=== PATIENT | female | born 1950 | race Caucasian/White ===

== ENCOUNTER 2020-01-21 17:37 | Emergency (ER) | payer OTHER, SELFPAY ==
[2020-01-21 17:37] VITALS: BP 160/98; PULSE 88; RESP 19; TEMP 37.1; O2SAT 98; BMI 31.8
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
[2020-01-21 17:54] VITALS: BP 130/90; PULSE 86; O2SAT 98
--- NOTE | 2020-01-21 18:10 | PC.NURSE ---
Pt to radiology
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
--- NOTE | 2020-01-21 18:43 | PC.NURSE ---
Pt returned from rad.
[2020-01-21 18:47] VITALS: BP 131/79; PULSE 77; O2SAT 99
[2020-01-21 19:37] VITALS: BP 159/83; PULSE 88; RESP 16; TEMP 36.8
== END 2020-01-21 19:39 | disposition home or self-care (01) ==
PROVIDERS: Emergency Provider Emergency Medicine; PCP Family Medicine
DX: S62.367A Nondisplaced fracture of neck of fifth metacarpal bone, left hand, initial encounter for closed fracture (principal); S16.1XXA Strain of muscle, fascia and tendon at neck level, initial encounter; V43.52XA Car driver injured in collision with other type car in traffic accident, initial encounter; Y92.414 Local residential or business street as the place of occurrence of the external cause
CPT/HCPCS: 29125; 71045; 72125; 72170; 73130; 99282

== ENCOUNTER → 2020-02-08 09:07 | Outpatient (CLI) | payer OTHER, SELFPAY ==
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
== END ==
PROVIDERS: PCP Family Medicine; Visit Provider Orthopaedic Surgery
DX: S62.307A Unspecified fracture of fifth metacarpal bone, left hand, initial encounter for closed fracture (principal)
CPT/HCPCS: 73130

== ENCOUNTER → 2020-02-29 08:56 | Outpatient (CLI) | payer OTHER, SELFPAY ==
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
== END ==
PROVIDERS: PCP Family Medicine; Visit Provider Orthopaedic Surgery
DX: S62.307A Unspecified fracture of fifth metacarpal bone, left hand, initial encounter for closed fracture (principal)
CPT/HCPCS: 73130

== ENCOUNTER 2020-03-24 17:29 | Emergency (ER) | payer MEDICARE, SELFPAY ==
[2020-03-24 17:45] VITALS: BP 187/88; PULSE 86; RESP 20; TEMP 37.5; O2SAT 96; BMI 32.8
--- NOTE | 2020-03-24 18:06 | HMH.EDUTC ---
[facility] [place] Disposition Clinical Impression: Exposure to COVID-19 virus, Viral syndrome, Bronchitis Disposition: Home, Self-Care Condition on Discharge: Good Instructions: DI for COVID-19 (Suspected or Confirmed ), Preventing the Spread of Coronavirus Discharge Instructions Additional Instructions: Drink plenty of fluids. Take tylenol for pain or fever. Return if you begin to have difficulty breathing. Follow up with your regular doctor. GO TO THE ER FOR ANY WORSENING SYMPTOMS Prescriptions: Benzonatate [Tessalon Perle 100mg Cap] 100 mg PO TIDP PRN #30 cap PRN Reason: Cough Transmission Status: Received by [id number] Azithromycin [Z-Demetrius 250mg Tab*] 250 mg PO UD DOSE PK #6 tab Transmission Status: Received by [id number] Referrals: Provider,Referral, [Primary Care Provider] - Time of Disposition: 18:08 Medical Decision Making - Medical Records Medical records reviewed: No: I reviewed the patient's medical records. - Romel Inquiry Pt receiving controlled substance: No Vital Signs: 03/24/20 17:45 03/24/20 18:20 Temperature 99.5 F 99.5 F Temperature Source Oral Pulse Rate 86 Pulse Rate [Right Brachial] 86 Respiratory Rate 20 20 Blood Pressure 187/88 H Blood Pressure [Right Arm] 187/88 H Blood Pressure Mean [Right Arm] 121 Blood Pressure Source [Right Arm] Automatic Cuff Blood Pressure Position [Right Arm] Sitting 02 Sat by Pulse Oximetry 96 Oxygen Delivery Method Room Air Orders (Tests/Meds): ORDERS Category Date Time Status Covid-19 Nasal PCR ([facility]) Routine Lab 03/24/20 17:50 Received [facility] [place] HPI - General Stated complaint: covid exposure Time Seen by Provider: 03/24/20 18:06 Mode of Arrival: Ambulatory Source of Information: Patient Limitations: No Limitations Description of Symptoms (Recalled from Triage Doc. by RN): REQUESTING COVID TEST D/T EXPOSURE; C/O COUGH, HEADACHE, AND SORE THROAT HEENT Symptoms (Recalled from RN notes): No Resp Symptoms (Recalled from RN notes): No Skin Symptoms (Recalled from RN notes): No MS Symptoms (Recalled from RN notes): No Functional Status (Recalled from RN notes): WNL - History of Present Illness Provider Complaint: She states that since last night she has been having chillng, body aches and head ache. She has also started coughing a lot today. Her sister was hospitalized for covid today. - Related Data Home Medications Medication Instructions Recorded Confirmed atorvastatin 20 mg tablet 20 mg PO DAILY #90 tab 02/18/19 02/29/20 fluoxetine 20 mg capsule 20 mg PO DAILY #90 cap 02/18/19 02/29/20 glimepiride 2 mg tablet 2 mg PO DAILY #90 tab 02/18/19 02/29/20 levothyroxine 150 mcg tablet 150 mcg PO DAILY #90 tab 02/18/19 02/29/20 metformin 500 mg tablet,extended 500 mg PO BID #180 tab 02/18/19 02/29/20 release 24 hr omeprazole 20 mg capsule,delayed 20 mg PO DAILY #90 cap 02/18/19 02/29/20 release ropinirole 2 mg tablet 2 mg PO DAILY #90 tab 02/18/19 02/29/20 Amlodipine Besylate [Amlodipine 5 mg PO DAILY 01/21/20 02/29/20 10mg Tab] Previous Rx's Medication Instructions Recorded Hydrocod/Acet 5/325 mg [[place] 1 tab PO Q6HP PRN #10 tab 01/21/20 5/325mg tablet] Azithromycin [Z-Demetrius 250mg Tab*] 250 mg PO UD DOSE PK #6 tab 03/24/20 Benzonatate [Tessalon Perle 100mg 100 mg PO TIDP PRN #30 cap 03/24/20 Cap] Allergies Allergy/AdvReac Type Severity Reaction Status Date / Time No Known Allergies Allergy Verified 02/29/20 09:37 - Worker's Comp Is this a Worker's Comp case?: No [facility] History - Hepatitis A Screen Drug use history?: No High risk sexual behaviors?: No History of sexually transmitted infection?: No Currently employed?: No Childcare worker?: No Do you have indoor plumbing?: Yes Do you have electricity?: Yes Attestation statement:: This patient has been screened for Hepatitis A risk factors. I have reviewed the patient's past medical history: Yes Medical
[2020-03-24 18:20] VITALS: BP 187/88; PULSE 86; RESP 20; TEMP 37.5; O2SAT 96
--- NOTE | 2020-03-25 00:27 | PC.NURSE ---
Positive Covid called from Lab, Dr Nichole notified and results placed in [facility] for follow up
--- NOTE | 2020-03-25 10:22 | PC.NURSE ---
PATIENT NOTIFIED OF POSITIVE COVID TEST AT THIS TIME
== END 2020-03-24 18:22 | disposition home or self-care (01) ==
PROVIDERS: Emergency Provider Nurse Practitioner Family
DX: U07.1 COVID-19 (principal); E11.9 Type 2 diabetes mellitus without complications; K21.9 Gastro-esophageal reflux disease without esophagitis; I10 Essential (primary) hypertension; E03.9 Hypothyroidism, unspecified; E78.5 Hyperlipidemia, unspecified; Z79.899 Other long term (current) drug therapy
CPT/HCPCS: G0463; 99202; U0003

== ENCOUNTER 2020-03-30 08:53 | Emergency (ER) | payer MEDICARE, SELFPAY ==
[2020-03-30 08:54] VITALS: BP 133/78; PULSE 91; RESP 20; TEMP 36.9; O2SAT 96
--- NOTE | 2020-03-30 09:07 | HMH.EDGENADL ---
ED Disposition Clinical Impression: Low blood pressure reading, COVID-19 virus infection Disposition: Home, Self-Care Condition on Discharge: Good Additional Instructions: Do not take your blood pressure medicine this morning. You may resume this evening. Rest and drink plenty of fluids today. Follow-up with your primary care doctor if problems persist. Return to the emergency department if blood pressure less than 90, severe shortness of breath, severe weakness or faintness, or if vomiting and unable to hold down fluids. Referrals: Camilo Olson MD [Primary Care Provider] - - Critical Care Critical Care Time: No Attestation: On , the high probability of a clinically significant, sudden or life threatening deterioration of the following system(s) required my full and direct attention, intervention and personal management. The time I documented below is in addition to time spent performing reported procedures but includes the following listed in this critical care notation. Medical Decision Making - Romel Inquiry Pt receiving controlled substance: No Vital Signs: 03/30/20 08:54 03/30/20 09:25 03/30/20 10:10 Temperature 98.4 F Temperature Source Oral Pulse Rate [Orthostatic Lying] 84 Pulse Rate [Orthostatic Standing] 102 H Pulse Rate [Radial] 91 H 74 Respiratory Rate 20 75 H Blood Pressure [Orthostatic Lying] 105/65 L Blood Pressure [Orthostatic Standing] 99/56 L Blood Pressure [Right Arm] 133/78 120/74 Blood Pressure Mean [Right Arm] 96 89 Blood Pressure Position [Right Arm] Sitting 02 Sat by Pulse Oximetry 96 95 Oxygen Delivery Method Room Air - Lab Data Lab Results 03/30/20 09:20: WBC 5.5, RBC 4.92, Hgb 14.0, Hct 42.3, MCV 86.1, MCH 28.5, MCHC 33.1, RDW 13.4, Plt Count 312, MPV 7.4, Neut % (Auto) 62.4, Lymph % (Auto) 31.0, Tripp % (Auto) 5.9, Eos % (Auto) 0.3, Baso % (Auto) 0.5, Neut # (Auto) 3.4, Lymph # (Auto) 1.7, Tripp # (Auto) 0.3, Eos # (Auto) 0.0, Baso # (Auto) 0.0 03/30/20 09:20: Sodium 138, Potassium 4.2, Chloride 104, Carbon Dioxide 24, Anion Gap 14.2, BUN 19 H, Creatinine 1.30 H, Estimated Creat Clear 55, Estimated GFR 41 L, Est GFR ( Amer) 49 L, Glucose 194 H, Calcium 9.3, Total Bilirubin 0.5, AST 35, ALT 34, Alkaline Phosphatase 117, Troponin I < 0.01, Total Protein 8.0, Albumin 4.6, Globulin 3.4 H, Albumin/Globulin Ratio 1.4 03/30/20 10:25: Urine Color Yellow, Urine Appearance Clear, Urine pH 5.5, Ur Specific [place] >= 1.030, Urine Protein 2+, Urine Glucose (UA) Negative, Urine Ketones Negative, Urine Blood Negative, Urine Nitrate Negative, Urine Bilirubin Negative, Urine Urobilinogen 0.2, Ur Leukocyte Esterase Negative 03/30/20 10:25: Lactate 0.9 Result diagrams: 03/30/20 09:20 03/30/20 09:20 Orders (Tests/Meds): ED MEDICATIONS Discontinued Medications Generic Name Dose Route Start Last Admin Trade Name Raymundo PRN Reason Stop Dose Admin Ketorolac Tromethamine 30 mg 03/30/20 10:43 Ketorolac 30mg/Ml Vial IV 03/30/20 10:44 ONCE ONE Sodium Chloride 1,000 ml 03/30/20 09:26 03/30/20 10:17 Sodium Chloride 0.9% 1000ml Bag IV 03/30/20 09:27 1,000 ml BOLUS ONE Administration ORDERS Category Date Time Status Urinalysis and Microscopic Stat Lab 03/30/20 10:25 Results Blood Culture Stat Micro 03/30/20 10:25 Received - ECG Data Tracing #1 EKG interpreted by Zhen Beach MD: Rhythm: sinus Rate: 82 Lerona: normal Ectopy: none Conduction: normal ST Segment Changes: none T Wave Changes: none Q Waves: none No evidence of acute ischemia or injury Normal electrocardiogram - Reevaluation(s) Time: 10:52 Reevaluation #1: Patient says she feels good. Blood pressure 117 systolic. General Adult HPI - General Stated complaint: BP low Time Seen by Provider: 03/30/20 09:07 - History of Present Illness HPI narrative: Patient states that she tested positive for Covid on Friday, 5 days ago, aft
[2020-03-30 09:11] VITALS: BMI 31.9
--- NOTE | 2020-03-30 09:11 | XR_ITS ---
PROCEDURE: XR CHEST PORTABLE CLINICAL HISTORY: chest tightness COMPARISON: CR XR CHEST PORTABLE from 01/21/2020 FINDINGS: The cardiomediastinal silhouette and pulmonary vascularity are within normal limits. The lungs are clear without infiltrates, suspicious nodules, or pleural effusions. There is a bone plate overlying the lower cervical IMPRESSION: No acute findings. Dictated by: Hammad Pleitez MD 03/30/2020 10:36 Hammad Pleitez MD in [place] 03/30/2020 10:36
[2020-03-30 09:25] VITALS: BP 105/65; BP 99/56; PULSE 102; PULSE 84
[2020-03-30 09:31] LABS: Basophils % 0.5 % (0.1-2.0); Eosinophils % 0.3 % (0.1-12.0); Hematocrit 42.3 % (37.0-47.0); Lymphocytes # 1.7 K/mm3 (0.7-4.5); Mean Corpuscular HGB Conc 33.1 g/dL (31.8-35.4); Mean Corpuscular Hemoglobin 28.5 pg (27.0-31.2); Mean Corpuscular Volume 86.1 fl (81-99); Mean Platelet Volume 7.4 fl (7.4-10.4); Monocytes # 0.3 K/mm3 (0.1-1.0); Monocytes % 5.9 % (1.7-9.3); Neutrophils # 3.4 K/mm3 (1.8-7.8); Neutrophils % 62.4 % (37.0-80.0); Platelet Count 312 K/mm3 (142-424); Red Blood Count 4.92 M/mm3 (4.20-5.40); Red Cell Distribution Width 13.4 % (11.5-17.5); White Blood Count 5.5 K/mm3 (4.8-10.8)
[2020-03-30 09:57] LABS: Chloride 104 mmol/L (98-107); Potassium 4.2 mmoL/L (3.5-5.1); Sodium 138 mmol/L (136-145)
[2020-03-30 09:59] LABS: Alanine Aminotransferase 34 U/L (12-78); Alkaline Phosphatase 117 U/L (38-126); Aspartate Amino Transferase 35 U/L (14-36); Bilirubin,Total 0.5 mg/dl (0.2-1.3); Blood Urea Nitrogen 19 mg/dl (7-17); Creatinine Clearance Estimated 55 mL/min (50-200); Estimated Glomerular Filt Rate 41 ml/min (>60); GFR (African American) 49 ML/MIN (>60)
[2020-03-30 10:00] LABS: Albumin Level 4.6 g/dl (3.5-5.0); Albumin/Globulin Ratio 1.4 (1.1-1.8); Anion Gap 14.2 mEq/L (5-15); Calcium 9.3 mg/dl (8.4-10.2); Carbon Dioxide 24 mmol/L (22.0-30.0); Globulin 3.4 g/dL (1.3-3.2); Glucose 194 mg/dl (74-100)
[2020-03-30 10:10] VITALS: BP 120/74; PULSE 74; RESP 75; O2SAT 95
[2020-03-30 10:15] LABS: Troponin I < 0.01 ng/ml (0.00-0.034)
[2020-03-30 10:42] LABS: Microscopic, Urine URINE MICROSCOPIC (MICROSCOPIC)
[2020-03-30 10:44] LABS: Appearance,Urine CLEAR (Clear); Bilirubin,Urine Negative (Negative); Blood, Urine Negative (Negative); Color,Urine YELLOW (Yellow); Glucose,Urine (UA) Negative (Negative); Ketones,Urine Negative (Negative); Leukocyte Esterase,Urine Negative (Negative); Nitrate,Urine Negative (Negative); PH,Urine 5.5 (5.0-8.5); Protein,Urine 2+ (Negative); Specific Gravity, Urine >= 1.030 (1.005-1.030); Urobilinogen,Urine 0.2 EU/dl (0.2)
[2020-03-30 10:49] LABS: Lactic Acid 0.9 mmol/L (0.7-2.1)
--- NOTE | 2020-03-30 11:19 | PC.NURSE ---
PT WAITING FOR RIDE
[2020-03-30 11:48] VITALS: BP 130/76; PULSE 88; RESP 18; TEMP 36.6; O2SAT 98
== END 2020-03-30 11:49 | disposition home or self-care (01) ==
PROVIDERS: Emergency Provider Emergency Medicine; PCP Family Medicine
DX: U07.1 COVID-19 (principal); R03.1 Nonspecific low blood-pressure reading; K21.9 Gastro-esophageal reflux disease without esophagitis; E11.9 Type 2 diabetes mellitus without complications; E78.5 Hyperlipidemia, unspecified; E03.9 Hypothyroidism, unspecified; I10 Essential (primary) hypertension; Z79.899 Other long term (current) drug therapy
CPT/HCPCS: 71045; 80053; 81001; 83605; 84484; 85025; 87040; 96365; 96375; 99284

== ENCOUNTER 2020-04-02 10:21 | Emergency (ER) | payer MEDICARE, SELFPAY ==
[2020-04-02 10:22] VITALS: BP 113/62; PULSE 88; RESP 28; TEMP 37.1; O2SAT 94; BMI 32.5
--- NOTE | 2020-04-02 10:30 | ECG_ITS ---
APPROVED REPORT Exam: Resting ECG HR:82 bpm ECG Measurements Heart Rate 82 AXES OR 150 P 19 QRSd 76 QRS 22 QT 348 T 34 QTc 406 Conclusion Normal sinus rhythm Normal ECG Electronically signed by : Cabrera Olson, 04/03/2020 19:39:13
[2020-04-02 10:31] VITALS: BMI 32.5
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
[2020-04-02 10:43] LABS: Basophils % 0.4 % (0.1-2.0); Eosinophils % 0.1 % (0.1-12.0); Hematocrit 39.2 % (37.0-47.0); Hemoglobin 13.2 g/dL (12.2-16.2); Lymphocytes # 1.9 K/mm3 (0.7-4.5); Lymphocytes % 27.6 % (10-50); Mean Corpuscular HGB Conc 33.7 g/dL (31.8-35.4); Mean Corpuscular Hemoglobin 28.8 pg (27.0-31.2); Mean Corpuscular Volume 85.6 fl (81-99); Mean Platelet Volume 7.7 fl (7.4-10.4); Monocytes # 0.3 K/mm3 (0.1-1.0); Monocytes % 4.8 % (1.7-9.3); Neutrophils # 4.6 K/mm3 (1.8-7.8); Neutrophils % 67.1 % (37.0-80.0); Platelet Count 345 K/mm3 (142-424); Red Blood Count 4.58 M/mm3 (4.20-5.40); Red Cell Distribution Width 13.5 % (11.5-17.5); White Blood Count 6.9 K/mm3 (4.8-10.8)
[2020-04-02 10:44] LABS: Chloride 102 mmol/L (98-107); Sodium 138 mmol/L (136-145)
--- NOTE | 2020-04-02 10:44 | HMH.EDCP ---
ED Disposition Clinical Impression: COVID-19 virus infection Disposition: Home, Self-Care Condition on Discharge: Good Instructions: DI for COVID-19 (Suspected or Confirmed ) Prescriptions: Acetaminophen [Tylenol 500mg tablet] 500 mg PO Q6 #20 tab Transmission Status: Pending to [facility] Ondansetron [Zofran 4mg ODT] 4 mg PO BIDP PRN #10 tab PRN Reason: Nausea Transmission Status: Pending to [facility] Referrals: PCP,No [Primary Care Provider] - Ari Nichole MD [Staff Physician] - - Critical Care Critical Care Time: No Attestation: On 04/02/20, the high probability of a clinically significant, sudden or life threatening deterioration of the following system(s) required my full and direct attention, intervention and personal management. The time I documented below is in addition to time spent performing reported procedures but includes the following listed in this critical care notation. Medical Decision Making - Medical Records Medical records reviewed: Yes: I reviewed the patient's medical records. - Romel Inquiry Pt receiving controlled substance: No Vital Signs: 04/02/20 10:22 04/02/20 11:25 Temperature 98.7 F Temperature Source Oral Pulse Rate [Radial] 88 81 Respiratory Rate 28 H 20 Blood Pressure [Right Arm] 113/62 134/77 Blood Pressure Mean [Right Arm] 79 96 Blood Pressure Position [Right Arm] Sitting 02 Sat by Pulse Oximetry 94 L 93 L Oxygen Delivery Method Room Air Room Air - Lab Data Lab Results 04/02/20 10:20: WBC 6.9, RBC 4.58, Hgb 13.2, Hct 39.2, MCV 85.6, MCH 28.8, MCHC 33.7, RDW 13.5, Plt Count 345, MPV 7.7, Neut % (Auto) 67.1, Lymph % (Auto) 27.6, [place] % (Auto) 4.8, Eos % (Auto) 0.1, Baso % (Auto) 0.4, Neut # (Auto) 4.6, Lymph # (Auto) 1.9, [place] # (Auto) 0.3, Eos # (Auto) 0.0, Baso # (Auto) 0.0 04/02/20 10:20: Sodium 138, Potassium 3.9, Chloride 102, Carbon Dioxide 26, Anion Gap 13.9, BUN 14, Creatinine 1.10 H, Estimated Creat Clear 64, Estimated GFR 49 L, Est GFR ( Amer) 60, Glucose 133 H, Calcium 9.3, Troponin I < 0.01 04/02/20 10:20: Lactate 1.5 Result diagrams: 04/02/20 10:20 04/02/20 10:20 Orders (Tests/Meds): ED MEDICATIONS Generic Name Dose Route Start Last Admin Trade Name Freq PRN Reason Stop Dose Admin Sodium Chloride 1,000 mls @ 999 mls/hr 04/02/20 10:45 04/02/20 10:34 Sod Chlor 0.9% 1000ml Bag IV 04/02/20 11:45 999 mls/hr .Q1H1M VIDA Administration ORDERS Category Date Time Status XR chest portable Stat Exams 04/02/20 10:32 Taken Troponin I Q3H Lab 04/02/20 13:45 Ordered Troponin I Q3H Lab 04/02/20 16:45 Ordered Blood Culture Stat Micro 04/02/20 10:20 Received - Radiology Data #1 Image(s): Chest Image Reviewed: Yes I reviewed the patient's radiology results, Yes I reviewed the patient's radiology image Preliminary Findings: Normal/NAD, No Fracture Seen - ECG Data Tracing #1 ECG initial impression date: 04/02/20 ECG initial impression time: 10:32 ECG normal with no acute: arrhythmias, ischemia, conduction abnormalities, chamber hypertrophy - Reevaluation(s) Time: 11:45 Reevaluation #1: On reevaluation, patient is feeling better. She is not requiring any supplemental oxygen. No significant hypoxia. We did ambulate the patient there is no respiratory distress. Patient needs to continue to self isolate. Tylenol Motrin for the myalgias. Patient was given strict return precautions. Verbalized understanding. Need to follow-up with PCP in 24 hours. Medical Decision Narrative: 69-year-old female presented to the emergency department with multiple complaints. Patient symptoms are consistent with viral syndrome after coronavirus exposure. Hemodynamically stable. No significant EKG changes. Work-up initiated. Chest Pain HPI - General Chief Complaint: Chest Pain Stated Complaint: chest pain Time Seen by Provider: 04/02/20 10:30 Mode of Arrival: Ambulatory Limitat
[2020-04-02 10:45] LABS: Potassium 3.9 mmoL/L (3.5-5.1)
[2020-04-02 10:47] LABS: Blood Urea Nitrogen 14 mg/dl (7-17); Creatinine Clearance Estimated 64 mL/min (50-200); Estimated Glomerular Filt Rate 49 ml/min (>60); GFR (African American) 60 ML/MIN (>60); Lactic Acid 1.5 mmol/L (0.7-2.1)
[2020-04-02 10:48] LABS: Anion Gap 13.9 mEq/L (5-15); Calcium 9.3 mg/dl (8.4-10.2); Carbon Dioxide 26 mmol/L (22.0-30.0); Glucose 133 mg/dl (74-100)
[2020-04-02 11:16] LABS: Troponin I < 0.01 ng/ml (0.00-0.034)
[2020-04-02 11:25] VITALS: BP 134/77; PULSE 81; RESP 20; O2SAT 93
[2020-04-02 11:59] VITALS: BP 134/77; PULSE 79; RESP 16; TEMP 36.9; O2SAT 98
== END 2020-04-02 12:03 | disposition home or self-care (01) ==
PROVIDERS: Emergency Provider Emergency Medicine
DX: U07.1 COVID-19 (principal); E11.9 Type 2 diabetes mellitus without complications; K21.9 Gastro-esophageal reflux disease without esophagitis; E78.5 Hyperlipidemia, unspecified; I10 Essential (primary) hypertension; E03.9 Hypothyroidism, unspecified; Z79.899 Other long term (current) drug therapy
CPT/HCPCS: 71045; 80048; 83605; 84484; 85025; 87040; 93005; 96365; 99283

== ENCOUNTER 2021-02-07 10:46 | Emergency (ER) | payer MEDICARE, SELFPAY ==
[2021-02-07 12:10] VITALS: BP 154/91; PULSE 69; RESP 16; TEMP 36.8; O2SAT 98; BMI 35.0
--- NOTE | 2021-02-07 12:19 | XR_ITS ---
PROCEDURE: XR ANKLE LT MIN 3V CLINICAL INDICATION: twisted ankle COMPARISON: No exams were available for comparison FINDINGS: No fracture or dislocation. No lytic or blastic change. There is normal mineralization. The joint spaces are well-preserved. No significant degenerative/arthritic changes. No erosive changes evident. Hypertrophic changes at the medial malleolar region. Small calcaneal spur. Ankle mortise is preserved. Unremarkable appearing talar dome IMPRESSION: No acute findings. Dictated by: Hammad Pleitez MD 02/07/2021 12:58 Hammad Pleitez MD in [place] 02/07/2021 12:58
--- NOTE | 2021-02-07 12:56 | HMH.EDUTC ---
[facility] [place] Clinical Impression: Otitis media Qualifiers: Otitis media type: suppurative Chronicity: acute Laterality: right Recurrence: non-recurrent Spontaneous tympanic membrane rupture: without spontaneous rupture Qualified Code(s): H66.001 - Acute suppurative otitis media without spontaneous rupture of ear drum, right ear Left ankle injury Qualifiers: Encounter type: initial encounter Qualified Code(s): S99.912A - Unspecified injury of left ankle, initial encounter Disposition: Home, Self-Care Condition on Discharge: Good Instructions: Middle Ear Infection, DI for Ankle Sprain Additional Instructions: Rest the extremity, Wear the ben wrap for compression, Elevate the extremity as tolerated while you are resting. Take tylenol or ibuprofen for pain. Follow up with Dr. Hunt (podiatry). I put in a referral but you need to call his office and schedule an appointment. Follow up with your regular doctor. GO TO THE ER FOR ANY WORSENING SYMPTOMS Take the antibiotics as directed. GO TO THE ER FOR ANY WORSENING SYMPTOMS Prescriptions: Azithromycin [Z-Demetrius 250mg Tab*] 250 mg PO UD DOSE PK #6 tab Transmission Status: Received by [id number] Referrals: Camilo Olson MD [Primary Care Provider] - Dalia Hunt DPM [Staff Physician] - Time of Disposition: 13:17 Medical Decision Making - Medical Records Medical records reviewed: No: I reviewed the patient's medical records. - Romel Inquiry Pt receiving controlled substance: No Vital Signs: 02/07/21 12:10 02/07/21 13:22 Temperature 98.3 F 98.3 F Temperature Source Oral Pulse Rate 69 Pulse Rate [Left] 69 Respiratory Rate 16 16 Blood Pressure 154/91 H Blood Pressure [Right Arm] 154/91 H Blood Pressure Mean [Right Arm] 112 02 Sat by Pulse Oximetry 98 Oxygen Delivery Method Room Air - Lab Data Lab results reviewed: Yes: I reviewed the patient's lab results. - Radiology Data #1 Image(s): Ankle Image Reviewed: Yes I reviewed the patient's radiology image, Yes I have reviewed radiologist's interpretation Preliminary Findings: No Fracture Seen PROCEDURE: XR ANKLE LT MIN 3V CLINICAL INDICATION: twisted ankle COMPARISON: No exams were available for comparison FINDINGS: No fracture or dislocation. No lytic or blastic change. There is normal mineralization. The joint spaces are well-preserved. No significant degenerative/arthritic changes. No erosive changes evident. Hypertrophic changes at the medial malleolar region. Small calcaneal spur. Ankle mortise is preserved. Unremarkable appearing talar dome IMPRESSION: No acute findings. Dictated by: Hammad Pleitez MD 02/07/2021 12:58 Hammad Pleitez MD in [place] 02/07/2021 12:58 [facility] [place] - General Stated complaint: earache right ear,left ankle pain Time Seen by Provider: 02/07/21 12:58 Mode of Arrival: Ambulatory Source of Information: Patient Limitations: No Limitations Description of Symptoms (Recalled from Triage Doc. by RN): pt c/o a R ear ache since yesterday. pt also c/o L ankle pain. she states she twisted her ankle a few weeks ago. HEENT Symptoms (Recalled from RN notes): Yes (R ear ache) Resp Symptoms (Recalled from RN notes): No Skin Symptoms (Recalled from RN notes): No MS Symptoms (Recalled from RN notes): Yes (L ankle pain) Functional Status (Recalled from RN notes): wnl - History of Present Illness Provider Complaint: She states that for the past 3 days she has had worsening left ear pain. She has also had some runny nose and sinus congestion. She denies any cough or chest congestion. She has been fully vaccinated against covid-19. She also c/o left ankle pain since twisting her ankle several weeks ago. She states that instead of it getting completely better, she has continued to have pain, swelling, and some instabilitiy of her left ankle since twisting it before. She is a diabetic. - Related Data Home Medications
[2021-02-07 13:22] VITALS: BP 154/91; PULSE 69; RESP 16; TEMP 36.8; O2SAT 98
== END 2021-02-07 13:24 | disposition home or self-care (01) ==
PROVIDERS: Emergency Provider Nurse Practitioner Family; PCP Family Medicine
DX: H66.001 Acute suppurative otitis media without spontaneous rupture of ear drum, right ear (principal); S99.912A Unspecified injury of left ankle, initial encounter; X50.1XXA Overexertion from prolonged static or awkward postures, initial encounter; Y92.019 Unspecified place in single-family (private) house as the place of occurrence of the external cause; I10 Essential (primary) hypertension; E78.5 Hyperlipidemia, unspecified; E03.9 Hypothyroidism, unspecified; E11.9 Type 2 diabetes mellitus without complications; K21.9 Gastro-esophageal reflux disease without esophagitis
CPT/HCPCS: G0463; 73610; 99202

== ENCOUNTER 2021-07-28 09:03 | Emergency (ER) | payer MEDICARE, SELFPAY ==
[2021-07-28 09:15] VITALS: BP 141/78; PULSE 78; RESP 16; TEMP 36.9; O2SAT 97; BMI 35.4
--- NOTE | 2021-07-28 09:22 | HMH.EDUTC ---
[facility] – [place] Clinical Impression: Right conjunctivitis Qualifiers: Conjunctivitis type: acute Acute conjunctivitis type: atopic Qualified Code(s): H10.11 - Acute atopic conjunctivitis, right eye Disposition: Home, Self-Care Condition on Discharge: Good Instructions: How to Instill Eye Drops, DI for Conjunctivitis Additional Instructions: Use the eye drops as directed. Strict hand washing in the house hold, because conjunctivitis is very contagious. Follow up with your regular doctor. GO TO THE ER FOR ANY WORSENING SYMPTOMS OR CONCERNS Prescriptions: methylPREDNISolone [Medrol] 4 mg PO DIRECTED 6 Days #21 packet Transmission Status: Received by [id number] Moxifloxacin HCl [Vigamox] 1 drp EYE-RIGHT TID 7 Days #3 ml Transmission Status: Received by [id number] Referrals: Camilo Olson MD [Primary Care Provider] - Time of Disposition: 10:16 Medical Decision Making - Medical Records Medical records reviewed: No: I reviewed the patient's medical records. - Romel Inquiry Pt receiving controlled substance: No Vital Signs: 07/28/21 09:15 07/28/21 10:20 Temperature 98.5 F 98.5 F Temperature Source Oral Pulse Rate 78 Pulse Rate [Left Brachial] 78 Respiratory Rate 16 16 Blood Pressure 141/78 H Blood Pressure [Left Arm] 141/78 H Blood Pressure Mean [Left Arm] 99 Blood Pressure Source [Left Arm] Automatic Cuff Blood Pressure Position [Left Arm] Sitting 02 Sat by Pulse Oximetry 97 Oxygen Delivery Method Room Air [facility] [place] HPI - General Stated complaint: eyes are swollen Time Seen by Provider: 07/28/21 09:22 - History of Present Illness Provider Complaint: She has had right eye matting and irritation since yesterday. She denies any change in her vision. She has discomfort but she denies eye pain. She denies photophobia. - Related Data Home Medications Medication Instructions Recorded Confirmed atorvastatin 20 mg tablet 20 mg PO DAILY #90 tab 02/18/19 02/29/20 fluoxetine 20 mg capsule 20 mg PO DAILY #90 cap 02/18/19 02/29/20 glimepiride 2 mg tablet 2 mg PO DAILY #90 tab 02/18/19 02/29/20 levothyroxine 150 mcg tablet 150 mcg PO DAILY #90 tab 02/18/19 02/29/20 metformin 500 mg tablet,extended 500 mg PO BID #180 tab 02/18/19 02/29/20 release 24 hr omeprazole 20 mg capsule,delayed 20 mg PO DAILY #90 cap 02/18/19 02/29/20 release ropinirole 2 mg tablet 2 mg PO DAILY #90 tab 02/18/19 02/29/20 Amlodipine Besylate [Amlodipine 5 mg PO DAILY 01/21/20 02/29/20 10mg Tab] Previous Rx's Medication Instructions Recorded Hydrocod/Acet 5/325 mg [[place] 1 tab PO Q6HP PRN #10 tab 01/21/20 5/325mg tablet] Azithromycin [Z-Demetrius 250mg Tab*] 250 mg PO UD DOSE PK #6 tab 03/24/20 Benzonatate [Tessalon Perle 100mg 100 mg PO TIDP PRN #30 cap 03/24/20 Cap] Acetaminophen [Tylenol 500mg 500 mg PO Q6 #20 tab 04/02/20 tablet] Ondansetron [Zofran 4mg ODT] 4 mg PO BIDP PRN #10 tab 04/02/20 Azithromycin [Z-Demetrius 250mg Tab*] 250 mg PO UD DOSE PK #6 tab 02/07/21 Moxifloxacin HCl [Vigamox] 1 drp EYE-RIGHT TID 7 Days #3 ml 07/28/21 methylPREDNISolone [Medrol] 4 mg PO DIRECTED 6 Days #21 07/28/21 packet Allergies Allergy/AdvReac Type Severity Reaction Status Date / Time No Known Allergies Allergy Verified 02/29/20 09:37 [facility] History - Hepatitis A Screen Attestation statement:: This patient has been screened for Hepatitis A risk factors. I have reviewed the patient's past medical history: Yes Medical History: Reports:: Diabetes Mellitus Type 2, Gastroesophageal Reflux Disease(GERD), Hyperlipidemia, Hypertension Other Medical History: Reports: Arthritis, Hypothyroidism Laterality Cases: Right: Arthroscopy Knee, Bilateral: Carpal Tunnel Release Other Surgeries: Yes: Colonoscopy, Hysterectomy-Partial Comment: Neck Surgery. Disc removed from back. Right Foot Surgery unknown year: Removal of Bone Spur - Social History Smoking Status: Never
[2021-07-28 10:20] VITALS: BP 141/78; PULSE 78; RESP 16; TEMP 36.9; O2SAT 97
== END 2021-07-28 10:26 | disposition home or self-care (01) ==
PROVIDERS: Emergency Provider Nurse Practitioner Family; PCP Family Medicine
DX: H10.11 Acute atopic conjunctivitis, right eye (principal); E11.9 Type 2 diabetes mellitus without complications; I10 Essential (primary) hypertension
CPT/HCPCS: 99212; G0463

== ENCOUNTER 2021-09-28 08:29 | Emergency (ER) | payer MEDICARE, SELFPAY ==
--- NOTE | 2021-09-28 08:51 | XR_ITS ---
FINAL REPORT CLINICAL HISTORY: cough, congestion 4 days COMPARISON: 04/02/2020 FINDINGS: TWO-VIEW CHEST The heart size is in the upper limits of normal in size. The mediastinum is normal. The lungs are clear. There is no pneumothorax. Cervical fusion hardware seen in the lower cervical spine. IMPRESSION: No acute cardiopulmonary process. Reviewed, Interpreted and Dictated by Pk Bean MD Transcribed by Anastacia Flores Authenticated and [facility]
[2021-09-28 09:07] VITALS: BP 119/68; PULSE 87; RESP 16; TEMP 37.2; O2SAT 96; BMI 35.4
--- NOTE | 2021-09-28 09:26 | HMH.EDUTC ---
[facility] [place] Clinical Impression: Viral syndrome Sinusitis Qualifiers: Sinusitis location: unspecified location Chronicity: acute Recurrence: non-recurrent Qualified Code(s): J01.90 - Acute sinusitis, unspecified Disposition: Home, Self-Care Condition on Discharge: Good Instructions: DI for Sinusitis Additional Instructions: Drink plenty of fluids. Take tylenol or ibuprofen for pain or fever. Take the medications as directed. Follow up with your regular doctor. GO TO THE ER FOR ANY WORSENING SYMPTOMS Quarantine until you know the results of your covid-19 test. Notify your school or workplace of your results and follow their instructions regarding return to work/school. Prescriptions: Benzonatate [Benzonatate 100mg cap] 100 mg PO TIDP PRN #30 cap PRN Reason: Cough Transmission Status: Received by [facility] predniSONE [Deltasone 10mg tablet] 10 mg PO DAILY 9 Days #21 tab Transmission Status: Received by [facility] Azithromycin [Z-Demetrius 250mg Tab*] 250 mg PO UD DOSE PK #6 tab Transmission Status: Received by [id number] Referrals: Camilo Olson MD [Primary Care Provider] - Time of Disposition: 09:32 Medical Decision Making - Medical Records Medical records reviewed: No: I reviewed the patient's medical records. - Romel Inquiry Pt receiving controlled substance: No Vital Signs: 09/28/21 09:07 09/28/21 09:45 Temperature 98.9 F 98.9 F Temperature Source Oral Pulse Rate 87 Pulse Rate [Left] 87 Respiratory Rate 16 16 Blood Pressure 119/69 Blood Pressure [Right Arm] 119/68 Blood Pressure Mean [Right Arm] 85 02 Sat by Pulse Oximetry 96 [facility] [place] - General Stated complaint: headache, sore throat, chills Time Seen by Provider: 09/28/21 09:26 Description of Symptoms (Recalled from Triage Doc. by RN): patient comes in for headache, sneezing, coughing, body aches, nasal drainage, chills. symptoms began 4 days ago. HEENT Symptoms (Recalled from RN notes): Yes Resp Symptoms (Recalled from RN notes): Yes Skin Symptoms (Recalled from RN notes): No MS Symptoms (Recalled from RN notes): No Functional Status (Recalled from RN notes): n/a - History of Present Illness Provider Complaint: She states that she has had sinus congestion, cough and malaise for the past 2 days. She refused a covid-19 test. - Related Data Home Medications Medication Instructions Recorded Confirmed atorvastatin 20 mg tablet 20 mg PO DAILY #90 tab 02/18/19 02/29/20 fluoxetine 20 mg capsule 20 mg PO DAILY #90 cap 02/18/19 02/29/20 glimepiride 2 mg tablet 2 mg PO DAILY #90 tab 02/18/19 02/29/20 levothyroxine 150 mcg tablet 150 mcg PO DAILY #90 tab 02/18/19 02/29/20 metformin 500 mg tablet,extended 500 mg PO BID #180 tab 02/18/19 02/29/20 release 24 hr omeprazole 20 mg capsule,delayed 20 mg PO DAILY #90 cap 02/18/19 02/29/20 release ropinirole 2 mg tablet 2 mg PO DAILY #90 tab 02/18/19 02/29/20 Amlodipine Besylate [Amlodipine 5 mg PO DAILY 01/21/20 02/29/20 10mg Tab] Previous Rx's Medication Instructions Recorded Hydrocod/Acet 5/325 mg [[place] 1 tab PO Q6HP PRN #10 tab 01/21/20 5/325mg tablet] Azithromycin [Z-Demetrius 250mg Tab*] 250 mg PO UD DOSE PK #6 tab 03/24/20 Benzonatate [Tessalon Perle 100mg 100 mg PO TIDP PRN #30 cap 03/24/20 Cap] Acetaminophen [Tylenol 500mg 500 mg PO Q6 #20 tab 04/02/20 tablet] Ondansetron [Zofran 4mg ODT] 4 mg PO BIDP PRN #10 tab 04/02/20 Azithromycin [Z-Demetrius 250mg Tab*] 250 mg PO UD DOSE PK #6 tab 02/07/21 Moxifloxacin HCl [Vigamox] 1 drp EYE-RIGHT TID 7 Days #3 ml 07/28/21 methylPREDNISolone [Medrol] 4 mg PO DIRECTED 6 Days #21 07/28/21 packet Azithromycin [Z-Demetrius 250mg Tab*] 250 mg PO UD DOSE PK #6 tab 09/28/21 Benzonatate [Benzonatate 100mg 100 mg PO TIDP PRN #30 cap 09/28/21 cap] predniSONE [Deltasone 10mg tablet] 10 mg PO DAILY 9 Days #21 tab 09/28/21 Allergies Allergy/AdvRe
[2021-09-28 09:45] VITALS: BP 119/69; PULSE 87; RESP 16; TEMP 37.2
== END 2021-09-28 09:46 | disposition home or self-care (01) ==
PROVIDERS: Emergency Provider Nurse Practitioner Family; PCP Family Medicine
DX: B34.9 Viral infection, unspecified (principal); J01.90 Acute sinusitis, unspecified
CPT/HCPCS: 71046